=== PATIENT | male | born 1955 | race Caucasian/White ===

== ENCOUNTER 2021-01-02 06:29 | Day surgery (SDC) | payer BC ==
[2021-01-02] MEDS ORDERED: Sodium Chloride 0.9% 1,000 ML IV SCH (07:00)
[2021-01-02] MEDS ORDERED: Propofol 200 MG/20 ML SDV ONE (07:23)
[2021-01-02] MEDS ORDERED: fentaNYL 100 MCG/2 ML SDV ONE (07:23)
[2021-01-02] MEDS ORDERED: Midazolam 1 MG/ML 2 ML SDV ONE (07:23)
--- NOTE | 2021-01-02 11:47 | OR ---
DATE OF PROCEDURE: 01/02/2021 SURGEON: Anuj Rojo MD PROCEDURE: Colonoscopy. FINDINGS: 1. Diverticulosis, mild, mostly limited to the sigmoid colon in classical pattern. 2. Sigmoid colon polyp, approximately 8 mm, completely removed using hot snare wire device. COMPLICATIONS: None. QUALITY CONTROL COORDINATOR: None. ANESTHESIA: MAC. PREOPERATIVE DIAGNOSIS: Screening colonoscopy. POSTOPERATIVE DIAGNOSIS: Screening colonoscopy. RISKS: Risks, benefits, alternatives, and limitations including, but not limited to, infection, bleeding, perforation, false positives, and false negatives were all explained to the patient, and he wished to proceed. PROCEDURE IN DETAIL: The patient was placed in left lateral decubitus position. Digital rectal exam was performed without abnormality. The scope was introduced and advanced atraumatically to the ileocecal valve. The scope was brought back to the ascending, transverse, descending colon, and retroflexed. No evidence of old or new blood. No masses. The diverticulosis was without diverticulitis. No abnormalities on retroflexion. The prep was acceptable, approximately 90% luminal surface could be seen. Greater than 10 minutes was spent removing the scope. The patient tolerated the procedure well. Anuj Rojo MD /[id number]
== END 2021-01-02 09:11 | disposition home or self-care (01) ==
LOC: JP.SDS 06:29
PROVIDERS: ATTEND Surgery
DX: Z12.11 Encounter for screening for malignant neoplasm of colon (principal); D12.5 Benign neoplasm of sigmoid colon; K57.30 Diverticulosis of large intestine without perforation or abscess without bleeding; I10 Essential (primary) hypertension
CPT/HCPCS: 45385; J2250; J2704; J3010; J7030; 88305